=== PATIENT | male | born 1960 | race Caucasian/White ===

== ENCOUNTER → 2016-12-12 | Outpatient (CLI) | payer OTHER ==
[~2016-12-12] VITALS: Ht 171.5 cm; Wt 102.8 kg
[2016-12-12 12:39] VITALS: BP 142/92; PULSE 76; Ht 171.5 cm; Wt 102.8 kg
== END | disposition home or self-care (01) ==
LOC: C.NEUR 11:25
PROVIDERS: ATTEND Physician Assistant
DX: R53.83 Other fatigue (principal); R06.83 Snoring; R06.81 Apnea, not elsewhere classified; G47.00 Insomnia, unspecified; G81.14 Spastic hemiplegia affecting left nondominant side; G62.9 Polyneuropathy, unspecified; I10 Essential (primary) hypertension